=== PATIENT | female | born 1970 | race Caucasian/White ===

== ENCOUNTER → 2021-08-04 | Outpatient (CLI) | payer SELFPAY ==
[~2021-08-04] MED LIST: ADULT ASPIRIN R81 MG PO; ATIVAN0.5 MG PO; PEPCID AC10 M2 PO; SUNMARK OMEPRAZ20 MG PO; VITAMIN D31250 MCG PO; ZINC50 M5 PO
[2021-08-04 13:42] LABS: BASO # 0.02 K/mm3 (0.02-0.10); EOS # 0.09 K/mm3 (0.04-0.40); EOS % 1.2 % (1.0-5.0); HEMATOCRIT 43.4 % (37.0-47.0); HEMOGLOBIN 14.4 g/dL (12.5-16.0); LYMPH# 1.61 K/mm3 (1.50-4.00); MEAN CELL VOLUME 93 fl (78-100); MEAN CORPUSCULAR HEMOGLOBIN 31 pg (27-31); MEAN CORPUSCULAR HGB CONC 33 g/dL (33-37); MEAN PLATELET VOLUME 8.8 fl (7.4-10.4); MONO # 0.34 K/mm3 (0.20-0.80); NEU # 5.23 K/mm3 (1.40-6.50); PLATELET COUNT 307 K/mm3 (130-400); RED BLOOD COUNT 4.68 M/mm3 (4.10-5.30); RED CELL DISTRIBUTION WIDTH 12.5 % (11.5-14.5); WHITE BLOOD COUNT 7.3 K/mm3 (4.8-10.8)
[2021-08-04 13:50] LABS: ALBUMIN 4.5 g/dL (3.5-5.0)
[2021-08-04 13:51] LABS: POTASSIUM 4.1 mmol/L (3.5-5.1)
[2021-08-04 13:52] LABS: CALCIUM 9.6 mg/dL (8.3-10.5)
[2021-08-04 13:53] LABS: TOTAL PROTEIN 7.5 g/dL (6.4-8.3)
[2021-08-04 13:55] LABS: TOTAL BILIRUBIN 0.5 mg/dL (0.2-1.2)
== END ==
LOC: LAB 13:08
PROVIDERS: Internal Medicine
DX: U07.1 COVID-19 (principal); K90.9 Intestinal malabsorption, unspecified; F41.0 Panic disorder [episodic paroxysmal anxiety]

== ENCOUNTER 2021-08-14 01:47 | Emergency (ER) | payer SELFPAY ==
[~2021-08-14] VITALS: Ht 149.9 cm; Wt 76.4 kg
[2021-08-14] MEDS ORDERED: ZINC50 M5 PO (01:54)
[2021-08-14] MEDS ORDERED: SUNMARK OMEPRAZ20 MG PO (01:54)
[2021-08-14] MEDS ORDERED: PEPCID AC10 M2 PO (01:54)
[2021-08-14] MEDS ORDERED: ATIVAN0.5 MG PO (01:55)
[2021-08-14] MEDS ORDERED: VITAMIN D31250 MCG PO (01:55)
[2021-08-14] MEDS ORDERED: ADULT ASPIRIN R81 MG PO (02:00)
[2021-08-14 03:20] VITALS: BP 118/75
== END 2021-08-14 03:20 | disposition home or self-care (01) ==
LOC: ED 01:47
DX: S91.311A Laceration without foreign body, right foot, initial encounter (principal); F41.9 Anxiety disorder, unspecified; K21.9 Gastro-esophageal reflux disease without esophagitis; Z79.899 Other long term (current) drug therapy; F17.210 Nicotine dependence, cigarettes, uncomplicated; W20.8XXA Other cause of strike by thrown, projected or falling object, initial encounter; W25.XXXA Contact with sharp glass, initial encounter
CPT/HCPCS: 90714

== ENCOUNTER 2021-08-28 16:01 | Emergency (ER) | payer SELFPAY ==
[2021-08-28 17:15] LABS: BASO # 0.02 K/mm3 (0.02-0.10); EOS # 0.02 K/mm3 (0.04-0.40); EOS % 0.2 % (1.0-5.0); HEMOGLOBIN 15.3 g/dL (12.5-16.0); LYMPH# 1.11 K/mm3 (1.50-4.00); MEAN CELL VOLUME 92 fl (78-100); MEAN CORPUSCULAR HEMOGLOBIN 31 pg (27-31); MEAN CORPUSCULAR HGB CONC 33 g/dL (33-37); MEAN PLATELET VOLUME 8.8 fl (7.4-10.4); MONO # 0.36 K/mm3 (0.20-0.80); NEU # 7.25 K/mm3 (1.40-6.50); PLATELET COUNT 327 K/mm3 (130-400); RED BLOOD COUNT 4.98 M/mm3 (4.10-5.30); RED CELL DISTRIBUTION WIDTH 12.9 % (11.5-14.5); WHITE BLOOD COUNT 8.8 K/mm3 (4.8-10.8)
[2021-08-28 17:28] LABS: ALBUMIN 4.7 g/dL (3.5-5.0); POTASSIUM 3.8 mmol/L (3.5-5.1); SODIUM 141 mmol/L (136-145)
[2021-08-28 17:29] LABS: CALCIUM 10.2 mg/dL (8.3-10.5)
[2021-08-28 17:30] LABS: GLUCOSE 115 mg/dL (65-105); TOTAL PROTEIN 8.1 g/dL (6.4-8.3)
[2021-08-28 17:31] LABS: CARBON DIOXIDE 23 mmol/L (22-29)
[2021-08-28 17:32] LABS: TOTAL BILIRUBIN 0.5 mg/dL (0.2-1.2)
[2021-08-28 17:36] LABS: AST-SGOT 15 U/L (5-34)
[2021-08-28 17:37] LABS: ALT/SGPT 22 U/L (0-55); LIPASE 40 U/L (8-78)
[2021-08-28 17:46] LABS: TROPONIN-I < 0.030 ng/mL (<0.030)
[2021-08-28 18:05] LABS: URINE APPEARANCE CLEAR; URINE BILIRUBIN NEGATIVE (NEGATIVE); URINE BLOOD TRACE (NEGATIVE); URINE COLOR LIGHT YELLOW; URINE GLUCOSE NEGATIVE (NEGATIVE); URINE KETONE NEGATIVE (NEGATIVE); URINE LEUKOCYTE ESTERASE NEGATIVE (NEGATIVE); URINE NITRATE NEGATIVE (NEGATIVE); URINE PROTEIN(semi-quant) TRACE (NEGATIVE); URINE UROBILINOGEN NORMAL (NORMAL); URINE WBC 0-1 /hpf (0-3)
[2021-08-28] MEDS ORDERED: BENTYL 20MG20 MG/TAB PO (20:19)
[2021-08-28 20:30] VITALS: BP 123/83
== END 2021-08-28 20:30 | disposition home or self-care (01) ==
LOC: ED 16:01
PROVIDERS: Nurse Practitioner
DX: A08.4 Viral intestinal infection, unspecified (principal); F41.9 Anxiety disorder, unspecified; Z20.822 Contact with and (suspected) exposure to COVID-19; Z79.899 Other long term (current) drug therapy
CPT/HCPCS: J2405; Q9967

== ENCOUNTER → 2021-09-11 | Outpatient (CLI) | payer SELFPAY ==
[~2021-09-11] MED LIST changes: +BENTYL 20MG20 MG/TAB PO
== END ==
LOC: LAB 16:02
DX: K90.9 Intestinal malabsorption, unspecified (principal)

== ENCOUNTER → 2021-12-30 | Outpatient (CLI) | payer SELFPAY | LOC: LAB 16:13 | DX: Z12.39 Encounter for other screening for malignant neoplasm of breast (principal); F41.1 Generalized anxiety disorder; K21.9 Gastro-esophageal reflux disease without esophagitis; E55.9 Vitamin D deficiency, unspecified; K90.9 Intestinal malabsorption, unspecified; T78.3XXS Angioneurotic edema, sequela; E78.2 Mixed hyperlipidemia ==

== ENCOUNTER → 2022-01-22 | Outpatient (CLI) | payer SELFPAY | LOC: MAMMO 01-13 14:15 → LAB 09:51 → MAMMO 09:51 | DX: Z12.31 Encounter for screening mammogram for malignant neoplasm of breast (principal); Z12.4 Encounter for screening for malignant neoplasm of cervix ==

== ENCOUNTER → 2022-02-05 | Outpatient (CLI) | payer SELFPAY | LOC: MAMMO 13:26 | DX: N64.89 Other specified disorders of breast (principal) ==

== ENCOUNTER → 2023-12-24 | Outpatient (CLI) | payer SELFPAY ==
[~2023-12-24] MED LIST changes: +BEET PO; +PRILOSEC 20MG20 MG PO
[2023-12-24 18:27] LABS: BASO # 0.01 K/mm3 (0.02-0.10); EOS # 0.09 K/mm3 (0.04-0.40); EOS % 1.4 % (1.0-5.0); HEMATOCRIT 43.8 % (37.0-47.0); HEMOGLOBIN 14.8 g/dL (12.5-16.0); LYMPH# 2.09 K/mm3 (1.50-4.00); MEAN CELL VOLUME 93 fl (78-100); MEAN CORPUSCULAR HEMOGLOBIN 32 pg (27-31); MEAN CORPUSCULAR HGB CONC 34 g/dL (33-37); MEAN PLATELET VOLUME 8.7 fl (7.4-10.4); MONO # 0.35 K/mm3 (0.20-0.80); NEU # 3.88 K/mm3 (1.40-6.50); PLATELET COUNT 293 K/mm3 (130-400); RED BLOOD COUNT 4.69 M/mm3 (4.10-5.30); RED CELL DISTRIBUTION WIDTH 12.2 % (11.5-14.5); WHITE BLOOD COUNT 6.4 K/mm3 (4.8-10.8)
[2023-12-24 18:30] LABS: URINE APPEARANCE CLEAR (CLEAR); URINE BILIRUBIN NEGATIVE (NEGATIVE); URINE COLOR YELLOW (YELLOW); URINE GLUCOSE NEGATIVE (NEGATIVE); URINE KETONE NEGATIVE (NEGATIVE); URINE PROTEIN(semi-quant) NEGATIVE (NEGATIVE)
[2023-12-24 18:31] LABS: ALBUMIN 4.6 g/dL (3.5-5.0); SODIUM 139 mmol/L (136-145); URINE BLOOD NEGATIVE (NEGATIVE); URINE LEUKOCYTE ESTERASE NEGATIVE (NEGATIVE); URINE NITRATE NEGATIVE (NEGATIVE)
[2023-12-24 18:34] LABS: GLUCOSE 100 mg/dL (65-105); TOTAL PROTEIN 7.5 g/dL (6.4-8.3)
[2023-12-24 18:35] LABS: CARBON DIOXIDE 21 mmol/L (22-29)
[2023-12-24 18:36] LABS: CLUE CELLS NOT OBSERVED (Not Observd); TOTAL BILIRUBIN 0.4 mg/dL (0.2-1.2)
[2023-12-24 18:39] LABS: AST-SGOT 17 U/L (5-34)
[2023-12-24 18:40] LABS: ALT/SGPT 21 U/L (0-55)
[2023-12-24 18:41] LABS: LIPASE 36 U/L (8-78)
== END ==
LOC: LAB 17:48
PROVIDERS: Nurse Practitioner Family
DX: R10.30 Lower abdominal pain, unspecified (principal); R10.11 Right upper quadrant pain
CPT/HCPCS: Q0111